=== PATIENT | male | born 1940 | race Caucasian/White ===

== ENCOUNTER → 2016-08-06 | Outpatient (CLI) | payer MEDICARE ==
[2016-08-06 11:12] LABS: ALANINE AMINOTRANSFERASE 22 U/L (21-72); ALKALINE PHOSPHATASE 64 U/L (38-126); ASPARTATE AMINO TRANSFERASE 18 U/L (17-59); BILIRUBIN,DIRECT 0.1 mg/dL (0.0-0.4); BILIRUBIN,TOTAL 0.4 mg/dL (0.2-1.3); TOTAL PROTEIN 6.7 g/dL (6.3-8.2)
[2016-08-06 11:49] LABS: PROSTATE SPECIFIC ANTIGEN < 0.064 ng/mL (<4.00)
== END ==
LOC: OD 10:07
PROVIDERS: ATTEND Radiology Radiation Oncology
DX: C61 Malignant neoplasm of prostate (principal); Z79.899 Other long term (current) drug therapy
CPT/HCPCS: 36415; 80076; 84153

== ENCOUNTER → 2016-12-06 | Outpatient (CLI) | payer MEDICARE ==
[2016-12-06 10:58] LABS: ABSOLUTE EOSINOPHILS # (AUTO) 0.1 10^3/uL (0.0-0.6); ABSOLUTE LYMPHOCYTES (AUTO) 1.1 10^3/uL (0.5-4.7); ABSOLUTE MONOCYTES (AUTO) 0.3 10^3/uL (0.1-1.4); ABSOLUTE NEUT (AUTO) 2.5 10^3/uL (1.7-8.2); BASOPHILS % (AUTO) 0.7 % (0-2); EOSINOPHILS % (AUTO) 2.9 % (0-6); HEMATOCRIT 38.9 % (37.9-51.0); HEMOGLOBIN 12.9 g/dL (13.5-17.0); HGB HCT DIFFERENCE -0.2; LYMPHOCYTES % (AUTO) 27.3 % (13-45); MEAN CORPUSCULAR HEMOGLOBIN 26.8 pg (27.0-33.4); MEAN CORPUSCULAR HGB CONC 33.2 g/dL (32.0-36.0); MEAN CORPUSCULAR VOLUME 81 fl (80-97); MONOCYTES % (AUTO) 6.8 % (3-13); RED BLOOD COUNT 4.83 10^6/uL (4.35-5.55); RED CELL DISTRIBUTION WIDTH 14.5 % (11.5-14.0); SEGMENTED NEUTROPHILS % (AUTO) 62.3 % (42-78); WHITE BLOOD COUNT 4.1 10^3/uL (4.0-10.5)
== END ==
LOC: OD 10:17
PROVIDERS: ATTEND Urology
DX: R97.20 Elevated prostate specific antigen [PSA] (principal)
CPT/HCPCS: 36415; 84153; 85025

== ENCOUNTER → 2016-12-11 | Outpatient (CLI) | payer MEDICARE ==
--- NOTE | 2016-12-11 14:32 | RADIOLOGY REPORT (SQ) ---
EXAM DESCRIPTION: NM WHOLE BODY BONE SCAN COMPLETED DATE/TIME: 12/11/2016 1:25 pm REASON FOR STUDY: RISING PSA R97.20 ELEVATED PROSTATE SPECIFIC ANTIGEN PSA COMPARISON: Whole-body bone scan 03/11/2016, 11/07/[address] 11/15/2014 RADIONUCLIDE AND DOSE: 21.3 millicuries Tc99m MDP. The route of agent administration: Intravenous. ADDITIONAL DRUGS AND DOSES: None. TECHNIQUE: Routine delayed images at 3 hour post radionuclide injection acquired of the bony skeleto n including anterior and posterior whole-body projections and additional focused images as needed. LIMITATIONS: None. FINDINGS: BONES: The patient has degenerative convex leftward lumbar curvature. Stable spotty poste rior element uptake over the lumbar spine, and mid and lower thoracic spine posterior elements. Bilateral increased uptake at the bilateral knees, right 1st metatarsophalangeal joint, right calcane us at a heel spur, right 1st carpal metacarpal and metacarpophalangeal joints, stable. Mild increased uptake over the cervical spine and bilateral shoulders, stable. KIDNEYS: Symmetric excretion without obstruction. OTHER: No other significant finding. IMPRESSION: Stable bone scan with increased uptake in characteristic locations for osteoarthritis COMMENT: Quality measure 147: Current bone scan is compared with any available plain radiographs, p rior bone scans, and CT/MRI. TECHNICAL DOCUMENTATION: JOB ID: [id number] [employer]- All Rights Reserved
== END ==
LOC: RAD 09:06
PROVIDERS: ATTEND Urology
DX: R97.20 Elevated prostate specific antigen [PSA] (principal)
CPT/HCPCS: 78306; A9561; Q9969

== ENCOUNTER → 2017-06-27 | Outpatient (CLI) | payer MEDICARE ==
[2017-06-28 09:15] LABS: PROSTATE SPECIFIC ANTIGEN 6.9 ng/mL (0.0-4.0); PSA % FREE 19.6 % (.); PSA FREE 1.35 ng/mL
== END ==
LOC: OD 10:07
PROVIDERS: ATTEND Urology
DX: C61 Malignant neoplasm of prostate (principal)
CPT/HCPCS: 36415; 84154

== ENCOUNTER → 2017-07-07 | Outpatient (CLI) | payer MEDICARE ==
--- NOTE | 2017-07-07 15:21 | RADIOLOGY REPORT (SQ) ---
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 The route of agent administration: Intravenous. ADDITIONAL DRUGS AND DOSES: None. TECHNIQUE: Routine delayed images at 3 hour post radionuclide injection acquired of the bony skeleto n including anterior and posterior whole-body projections and additional focused images as needed. LIMITATIONS: None. FINDINGS: BONES: Normal visualization without areas of photopenia or significant increased bony upta ke of radiopharmaceutical. KIDNEYS: Symmetric excretion without obstruction. OTHER: No other significant finding. IMPRESSION: No evidence of metastatic disease. COMMENT: Quality measure 147: Current bone scan is compared with any available plain radiographs, p rior bone scans, and CT/MRI. TECHNICAL DOCUMENTATION: JOB ID: [id number] [employer]- All Rights Reserved Reading location - IP/workstation name: [email or web address]
== END ==
LOC: RAD 10:04
PROVIDERS: ATTEND Urology
DX: C61 Malignant neoplasm of prostate (principal)
CPT/HCPCS: 78306; A9561; Q9969

== ENCOUNTER → 2017-08-01 | Outpatient (CLI) | payer MEDICARE | LOC: OD 10:40 | PROVIDERS: ATTEND Urology | DX: C61 Malignant neoplasm of prostate (principal) | CPT/HCPCS: 36415; 84153 ==

== ENCOUNTER → 2017-08-13 | Outpatient (CLI) | payer MEDICARE ==
[2017-08-13 11:23] LABS: ALANINE AMINOTRANSFERASE 15 U/L (21-72); ALBUMIN 4.3 g/dL (3.5-5.0); ALKALINE PHOSPHATASE 61 U/L (38-126); ASPARTATE AMINO TRANSFERASE 19 U/L (17-59); BILIRUBIN,DIRECT 0.3 mg/dL (0.0-0.4); BILIRUBIN,TOTAL 0.5 mg/dL (0.2-1.3); TOTAL PROTEIN 7.3 g/dL (6.3-8.2)
== END ==
LOC: OD 09:47
PROVIDERS: ATTEND Radiology Radiation Oncology
DX: C61 Malignant neoplasm of prostate (principal); Z79.899 Other long term (current) drug therapy
CPT/HCPCS: 36415; 80076; 84153

== ENCOUNTER → 2017-11-12 | Outpatient (CLI) | payer MEDICARE | LOC: OD 09:21 | PROVIDERS: ATTEND Radiology Radiation Oncology | DX: C61 Malignant neoplasm of prostate (principal); R97.20 Elevated prostate specific antigen [PSA] | CPT/HCPCS: 36415; 84153 ==

== ENCOUNTER → 2018-05-18 | Outpatient (CLI) | payer MEDICARE ==
[2018-05-18 11:35] LABS: ALANINE AMINOTRANSFERASE 11 U/L (21-72); ALKALINE PHOSPHATASE 59 U/L (38-126); ASPARTATE AMINO TRANSFERASE 21 U/L (17-59); BILIRUBIN,DIRECT 0.5 mg/dL (0.0-0.4); BILIRUBIN,TOTAL 0.9 mg/dL (0.2-1.3); TOTAL PROTEIN 6.7 g/dL (6.3-8.2)
== END ==
LOC: OD 09:59
PROVIDERS: ATTEND Radiology Radiation Oncology
DX: C61 Malignant neoplasm of prostate (principal); R97.20 Elevated prostate specific antigen [PSA]; Z79.899 Other long term (current) drug therapy
CPT/HCPCS: 36415; 80076; 84153

== ENCOUNTER → 2020-01-28 | Outpatient (CLI) | payer MEDICARE ==
[2020-01-28 12:25] LABS: ABSOLUTE LYMPHOCYTES (AUTO) 1.2 10^3/uL (0.5-4.7); ABSOLUTE MONOCYTES (AUTO) 0.2 10^3/uL (0.1-1.4); ABSOLUTE NEUT (AUTO) 1.8 10^3/uL (1.7-8.2); BASOPHILS % (AUTO) 0.6 % (0-2); EOSINOPHILS % (AUTO) 1.1 % (0-6); MEAN CORPUSCULAR HEMOGLOBIN 29.9 pg (27.0-33.4); MEAN CORPUSCULAR HGB CONC 33.3 g/dL (32.0-36.0); MEAN CORPUSCULAR VOLUME 90 fl (80-97); MONOCYTES % (AUTO) 6.8 % (3-13); PLATELET COUNT 208 10^3/uL (150-450); RED BLOOD COUNT 3.67 10^6/uL (4.35-5.55); RED CELL DISTRIBUTION WIDTH 14.9 % (11.5-14.0); SEGMENTED NEUTROPHILS % (AUTO) 55.5 % (42-78); TOTAL CELLS COUNTED % (AUTO) 100 %; WHITE BLOOD COUNT 3.3 10^3/uL (4.0-10.5)
[2020-01-28 12:43] LABS: ALBUMIN 3.8 g/dL (3.5-5.0); ALKALINE PHOSPHATASE 62 U/L (38-126); ANION GAP 7 (5-19); ASPARTATE AMINO TRANSFERASE 20 U/L (17-59); BILIRUBIN,DIRECT 0.3 mg/dL (0.0-0.4); BILIRUBIN,TOTAL 0.7 mg/dL (0.2-1.3); BLOOD UREA NITROGEN 16 mg/dL (7-20); CALCIUM 9.2 mg/dL (8.4-10.2); CARBON DIOXIDE 27 mmol/L (22-30); CHLORIDE 104 mmol/L (98-107); CHOLESTEROL 151.84 mg/dL (0-200); GLUCOSE 80 mg/dL (75-110); TOTAL PROTEIN 6.4 g/dL (6.3-8.2); TRIGLYCERIDES 57 mg/dL (<150)
[2020-01-28 12:54] LABS: DIRECT LDL 90 mg/dL (<100)
== END ==
LOC: OD 10:56
PROVIDERS: ATTEND Family Medicine Geriatric Medicine
DX: C61 Malignant neoplasm of prostate (principal); E55.9 Vitamin D deficiency, unspecified; Z13.1 Encounter for screening for diabetes mellitus; Z13.220 Encounter for screening for lipoid disorders; Z13.0 Encounter for screening for diseases of the blood and blood-forming organs and certain disorders involving the immune mechanism; Z13.29 Encounter for screening for other suspected endocrine disorder; Z79.899 Other long term (current) drug therapy
CPT/HCPCS: 36415; 80053; 80061; 82607; 84153; 84443; 85025

== ENCOUNTER → 2020-02-29 | Outpatient (CLI) | payer MEDICARE ==
[2020-02-29 10:03] LABS: ABSOLUTE EOSINOPHILS # (AUTO) 0.1 10^3/uL (0.0-0.6); ABSOLUTE LYMPHOCYTES (AUTO) 1.1 10^3/uL (0.5-4.7); ABSOLUTE MONOCYTES (AUTO) 0.3 10^3/uL (0.1-1.4); ABSOLUTE NEUT (AUTO) 2.6 10^3/uL (1.7-8.2); BASOPHILS % (AUTO) 0.9 % (0-2); EOSINOPHILS % (AUTO) 1.9 % (0-6); HEMATOCRIT 35.1 % (37.9-51.0); HEMOGLOBIN 11.6 g/dL (13.5-17.0); LYMPHOCYTES % (AUTO) 27.6 % (13-45); MEAN CORPUSCULAR HEMOGLOBIN 28.3 pg (27.0-33.4); MEAN CORPUSCULAR VOLUME 86 fl (80-97); MONOCYTES % (AUTO) 6.9 % (3-13); PLATELET COUNT 216 10^3/uL (150-450); RED BLOOD COUNT 4.09 10^6/uL (4.35-5.55); RED CELL DISTRIBUTION WIDTH 14.8 % (11.5-14.0); SEGMENTED NEUTROPHILS % (AUTO) 62.7 % (42-78); TOTAL CELLS COUNTED % (AUTO) 100 %; WHITE BLOOD COUNT 4.1 10^3/uL (4.0-10.5)
== END ==
LOC: OD 08:51
PROVIDERS: ATTEND Family Medicine Geriatric Medicine
DX: D64.9 Anemia, unspecified (principal)
CPT/HCPCS: 36415; 85025

== ENCOUNTER → 2020-05-09 | Outpatient (CLI) | payer MEDICARE ==
[2020-05-09 10:54] LABS: ABSOLUTE EOSINOPHILS # (AUTO) 0.1 10^3/uL (0.0-0.6); ABSOLUTE LYMPHOCYTES (AUTO) 1.9 10^3/uL (0.5-4.7); ABSOLUTE MONOCYTES (AUTO) 0.4 10^3/uL (0.1-1.4); ABSOLUTE NEUT (AUTO) 3.2 10^3/uL (1.7-8.2); BASOPHILS % (AUTO) 0.4 % (0-2); EOSINOPHILS % (AUTO) 1.3 % (0-6); HEMATOCRIT 36.7 % (37.9-51.0); LYMPHOCYTES % (AUTO) 33.9 % (13-45); MEAN CORPUSCULAR HEMOGLOBIN 26.4 pg (27.0-33.4); MEAN CORPUSCULAR HGB CONC 32.8 g/dL (32.0-36.0); MEAN CORPUSCULAR VOLUME 81 fl (80-97); MONOCYTES % (AUTO) 6.9 % (3-13); PLATELET COUNT 208 10^3/uL (150-450); RED BLOOD COUNT 4.56 10^6/uL (4.35-5.55); SEGMENTED NEUTROPHILS % (AUTO) 57.5 % (42-78); TOTAL CELLS COUNTED % (AUTO) 100 %; WHITE BLOOD COUNT 5.5 10^3/uL (4.0-10.5)
[2020-05-09 11:21] LABS: IRON(TIBC) 49.1 ug/dL (49-181)
== END ==
LOC: OD 10:07
PROVIDERS: ATTEND Family Medicine Geriatric Medicine
DX: D64.9 Anemia, unspecified (principal); Z79.899 Other long term (current) drug therapy
CPT/HCPCS: 36415; 82728; 83540; 83550; 84466; 85025